=== PATIENT | female | born 1980 | race Caucasian/White ===

== ENCOUNTER 2018-04-30 00:35 | Emergency (ER) | payer OTHER ==
[~2018-04-30] VITALS: Ht 175.3 cm; Wt 98.4 kg
--- NOTE | 2018-04-30 01:22 | ED.ADGEN ---
Past History Past Medical History: No Pertinent History Past Surgical History: No Surgical History Smoking: Non-smoker Adult General Chief Complaint Chief Complaint Right shoulder and elbow injury post fall HPI HPI Patient was cleaning kaylee from around her pool deck at about 8:00PM tonight when she fell off the pool deck about 4 feet onto her right shoulder. She landed on her right shoulder and elbow and has had difficulty moving her right arm since then. She denied any head injury or loss of consciousness. She denies any neck pain. She hit her hip, but she has been able to ambulate without any pain. Review of Systems Review of Systems Constitutional: Denies fever or chills Eyes: Denies change in visual acuity, redness, or eye pain HENT: Denies nasal congestion or sore throat Respiratory: Denies cough or shortness of breath Cardiovascular: No additional information not addressed in HPI GI: Denies abdominal pain, nausea, vomiting, bloody stools or diarrhea : Denies dysuria or hematuria Musculoskeletal: Denies back pain or neck pain, with right shoulder and elbow pain Integument: Denies rash or skin lesions Neurologic: Denies headache, focal weakness or sensory changes Endocrine: Denies polyuria or polydipsia All other systems were reviewed and found to be within normal limits, except as documented in this note. Current Medications Current Medications Current Medications Medications (Trade) Dose Ordered Sig/Sam Start Time Stop Time Status Last Admin Dose Admin Acetaminophen/ Hydrocodone Bitart (Lortab 5/325) 1 tab 1X ONCE 04/30/18 01:30 04/30/18 01:54 DC 04/30/18 01:38 1 TAB Allergies Allergies Allergies Coded Allergies Type Severity Reaction Last Updated Verified No Known Drug Allergies 04/30/18 No Physical Exam Physical Exam Constitutional: Well developed, well nourished, no acute distress, non-toxic appearance. HENT: Normocephalic, atraumatic, bilateral external ears normal, oropharynx moist, no oral exudates, nose normal. Eyes: PERRLA, EOMI, conjunctiva normal, no discharge. Neck: Normal range of motion, no tenderness or point bony tenderness, supple, no stridor. Cardiovascular:Heart rate regular rhythm, no murmur, pulses equal and symmetric bilaterally. Lungs & Thorax: Bilateral breath sounds clear to auscultation Abdomen: Bowel sounds normal, soft, no tenderness, no masses, no pulsatile masses. Skin: Warm, dry, no erythema, no rash. Back: No tenderness, no CVA tenderness. Extremities: with right shoulder anterior tenderness and right elbow tenderness , no swelling or erythema, passive ROM intact, no edema, no cyanosis, no clubbing. Patient is unable to abduct right shoulder secondary to pain. Neurologic: Alert and oriented X 3, normal motor function, normal sensory function, no focal deficits noted. CN II-XII intact, strength 5/5 UE/LE symmetric bilaterally, sensation intact to light touch and position sense UE/LE symmetric bilaterally. gait normal Psychologic: Affect normal, judgement normal, mood normal. Current Patient Data Vital Signs Vital Signs Date Time Temp Pulse Resp B/P (MAP) Pulse Ox O2 Delivery O2 Flow Rate FiO2 04/30/18 01:38 16 100 04/30/18 01:24 98.8 95 Room Air EKG EKG [] Radiology/Procedures Radiology/Procedures [address] [address] IMAGING REPORT Signed PATIENT: LARRY SOW ACCOUNT: [id number] : 1980 LOCATION: ER AGE: 37 SEX: F EXAM STATUS: DEP ER ORD. PHYSICIAN: WESLEY LAZO MD REASON: Injury from fall 04/29/18 on right lower arm, pain PROCEDURE: FOREARM RIGHT FOREARM RIGHT, HUMERUS RIGHT, SHOULDER 2+V RIGHT Clinical Indication: Injury from fall 04/29/18 on right lower arm, pain Comparison: None. Findings: No obvious deformity of the wrist. No soft tissue swelling of the forearm. No acute fracture of the radius or ulna. Images do not constitute a diagnostic evaluation of the elbow. No obvious deformity of the elbow. No acute fracture of the humerus. Glenohumeral and acromioclavicular articulations are maintained. There is no acute fracture or dislocation. Right upper lung is clear. No acute right rib abnormality. IMPRESSION: No acute fracture. Electronically signed by: Ministerio Tuttle MD (04/30/2018 2:58 AM) [facility] DICTATED AND SIGNED BY: MINISTERIO TUTTLE MD DATE: 04/30/18 0256 CC: WESLEY LAZO MD; PCP,NO ~ [address] [address] IMAGING REPORT Signed PATIENT: LARRY SOW ACCOUNT: [id number] : 1980 LOCATION: ER AGE: 37 SEX: F EXAM STATUS: DEP ER ORD. PHYSICIAN: WESLEY LAZO MD REASON: Injury from fall 04/29/18 on right upper arm, pain PROCEDURE: HUMERUS RIGHT FOREARM RIGHT, HUMERUS RIGHT, SHOULDER 2+V RIGHT Clinical Indication: Injury from fall 04/29/18 on right lower arm, pain Comparison: None. Findings: No obvious deformity of the wrist. No soft tissue swelling of the forearm. No acute fracture of the radius or ulna. Images do not constitute a diagnostic evaluation of the elbow. No obvious deformity of the elbow. No acute fracture of the humerus. Glenohumeral and acromioclavicular articulations are maintained. There is no acute fracture or dislocation. Right upper lung is clear. No acute right rib abnormality. IMPRESSION: No acute fracture. Electronically signed by: Ministerio Tuttle MD (04/30/2018 2:58 AM) [facility] DICTATED AND SIGNED BY: MINISTERIO TUTTLE MD DATE: 04/30/18 025 CC: WESLEY LAZO MD; PCP,NO ~ [address] [address] IMAGING REPORT Signed PATIENT: LARRY SOW ACCOUNT: [id number] : 1980 LOCATION: ER AGE: 37 SEX: F EXAM STATUS: DEP ER ORD. PHYSICIAN: WESLEY LAZO MD REASON: Injury from fall 04/29/18 on right shoulder region, pain PROCEDURE: SHOULDER 2+V RIGHT FOREARM RIGHT, HUMERUS RIGHT, SHOULDER 2+V RIGHT Clinical Indication: Injury from fall 04/29/18 on right lower arm, pain Comparison: None. Findings: No obvious deformity of the wrist. No soft tissue swelling of the forearm. No acute fracture of the radius or ulna. Images do not constitute a diagnostic evaluation of the elbow. No obvious deformity of the elbow. No acute fracture of the humerus. Glenohumeral and acromioclavicular articulations are maintained. There is no acute fracture or dislocation. Right upper lung is clear. No acute right rib abnormality. IMPRESSION: No acute fracture. Electronically signed by: Ministerio Tuttle MD (04/30/2018 2:58 AM) [facility] DICTATED AND SIGNED BY: MINISTERIO TUTTLE MD DATE: 04/30/18 0256 CC: WESLEY LAZO MD; PCP,NO ~ Course & Med Decision Making Course & Med Decision Making Emergency Department Course Patient presents with right shoulder and elbow pain/injury post fall DDx- fracture, dislocation, contusion, sprain, strain The patient was stable in the ED with normal neurologic exam. right shoulder, elbow and forearm x-rays were unremarkable. No fracture or dislocation. Patient was placed in sling and advised to follow-up with orthopedic referral. Final Impression Final Impression Clinical Impression Right shoulder sprain Right Elbow Sprain Draglucia Disclaimer Draglucia Disclaimer This electronic medical record was generated, in whole or in part, using a voice recognition dictation system. Departure Departure: Impression: Primary Impression: Sprain of right shoulder Additional Impression: Sprain of right elbow Disposition: 01 HOME, SELF-CARE Condition: STABLE Patient Instructions: Arm Sling Use, [id number], Elbow Injury, Shoulder Sprain Additional Instructions: Follow-up with Dr. Gokul Smith orthopedics for further evaluation, call tomorrow for an appointment Address: [address] [place] [address], [place] [address] If you develop worse pain, weakness, numbness, swelling, skin discoloration return to the Emergency Department immediately Scripts Hydrocodone Bit/Acetaminophen (NORCO 5-325 TABLET) 1 Each Tablet 1 TAB PO PRN Q6HRS PRN for PAIN for 2 Days, #8 TAB 0 Refills Prov: WESLEY LAZO MD 04/30/18 Ibuprofen (IBUPROFEN) 800 Mg Tablet 800 MG PO TIDWMEALS for 5 Days, #15 TAB Prov: WESLEY LAZO MD 04/30/18 WESLEY LAZO MD Apr 30, 2018 01:22
[2018-04-30 01:24] VITALS: BP 113/66
[2018-04-30] MEDS ORDERED: HYDROcodone/APAP 5/325MG 1 TAB TABLET PO ONE (01:30)
[2018-04-30] MEDS ORDERED: IBUP800T19 PO (01:48)
[2018-04-30] MEDS ORDERED: HYDR-971 PO (01:48)
--- NOTE | 2018-04-30 03:01 | RAD ---
FOREARM RIGHT, HUMERUS RIGHT, SHOULDER 2+V RIGHT Clinical Indication: Injury from fall 04/29/18 on right lower arm, pain Comparison: None. Findings: No obvious deformity of the wrist. No soft tissue swelling of the forearm. No acute fracture of the radius or ulna. Images do not constitute a diagnostic evaluation of the elbow. No obvious deformity of the elbow. No acute fracture of the humerus. Glenohumeral and acromioclavicular articulations are maintained. There is no acute fracture or dislocation. Right upper lung is clear. No acute right rib abnormality. IMPRESSION: No acute fracture. Electronically signed by: Ministerio Tuttle MD (04/30/2018 2:58 AM) [facility]
--- NOTE | 2018-04-30 03:01 | RAD ---
FOREARM RIGHT, HUMERUS RIGHT, SHOULDER 2+V RIGHT Clinical Indication: Injury from fall 04/29/18 on right lower arm, pain Comparison: None. Findings: No obvious deformity of the wrist. No soft tissue swelling of the forearm. No acute fracture of the radius or ulna. Images do not constitute a diagnostic evaluation of the elbow. No obvious deformity of the elbow. No acute fracture of the humerus. Glenohumeral and acromioclavicular articulations are maintained. There is no acute fracture or dislocation. Right upper lung is clear. No acute right rib abnormality. IMPRESSION: No acute fracture. Electronically signed by: Ministerio Tuttle MD (04/30/2018 2:58 AM) [facility]
== END 2018-04-30 02:01 | disposition home or self-care (01) ==
LOC: ER 00:35
DX: S43.401A Unspecified sprain of right shoulder joint, initial encounter (principal); S53.401A Unspecified sprain of right elbow, initial encounter; W17.89XA Other fall from one level to another, initial encounter; Y93.89 Activity, other specified; Y92.89 Other specified places as the place of occurrence of the external cause; Y99.8 Other external cause status
CPT/HCPCS: 73030; 73060; 73090; 99284

== ENCOUNTER 2019-07-28 21:12 | Emergency (ER) | payer BC, OTHER ==
[~2019-07-28] VITALS: Ht 175.3 cm; Wt 81.6 kg
[~2019-07-28 21:12] MED LIST: HYDR-3165 PO; IBUP800T19 PO
[2019-07-28 21:15] VITALS: BP 103/88
[2019-07-28] MEDS ORDERED: HYDR-3165 PO (21:54)
--- NOTE | 2019-07-28 21:54 | PHYS DOC ---
Past History Past Medical History: No Pertinent History Additional Past Medical Histor: lupus, renaulds Past Surgical History: No Surgical History Additional Past Surgical Histo: shoulder Smoking: Non-smoker Alcohol Use: None Drug Use: None Adult General Chief Complaint Chief Complaint: HAND PROBLEM HPI HPI 39-year-old female presents with right thumb injury. 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 She hyperextended her thumb. She waited at home to see if the pain would improve, but it is still quite painful. 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 She denies any other injuries. Her pain is most significant at the base of the thumb. Review of Systems Review of Systems Constitutional: Denies fever or chills [] Eyes: Denies change in visual acuity, redness, or eye pain [] HENT: Denies nasal congestion or sore throat [] Respiratory: Denies cough or shortness of breath [] Cardiovascular: No additional information not addressed in HPI [] GI: Denies abdominal pain, nausea, vomiting, bloody stools or diarrhea [] : Denies dysuria or hematuria [] Musculoskeletal: Right thumb pain[] Integument: Denies rash or skin lesions [] Neurologic: Denies headache, focal weakness or sensory changes [] Endocrine: Denies polyuria or polydipsia [] All other systems were reviewed and found to be within normal limits, except as documented in this note. Allergies Allergies Allergies Coded Allergies Type Severity Reaction Last Updated Verified No Known Drug Allergies 04/30/18 No Physical Exam Physical Exam Constitutional: Well developed, well nourished, no acute distress, non-toxic appearance. [] HENT: Normocephalic, atraumatic, bilateral external ears normal, oropharynx moist, no oral exudates, nose normal. [] Eyes: PERRLA, EOMI, conjunctiva normal, no discharge. [] Neck: Normal range of motion, no tenderness, supple, no stridor. [] Cardiovascular:Heart rate regular rhythm, no murmur [] Lungs & Thorax: Bilateral breath sounds clear to auscultation [] Abdomen: Bowel sounds normal, soft, no tenderness, no masses, no pulsatile masses. [] Skin: Warm, dry, no erythema, no rash. [] Back: No tenderness, no CVA tenderness. [] Extremities: Tenderness at the base of the right thumb. Range of motion within normal limits. Opposition strength 3/5.[] Neurologic: Alert and oriented X 3, normal motor function, normal sensory function, no focal deficits noted. [] Psychologic: Affect normal, judgement normal, mood normal. [] Current Patient Data Vital Signs Vital Signs Date Time Temp Pulse Resp B/P (MAP) Pulse Ox O2 Delivery O2 Flow Rate FiO2 07/28/19 21:15 98.2 88 18 97 Room Air EKG EKG [] Radiology/Procedures Radiology/Procedures [] Course & Med Decision Making Course & Med Decision Making Pertinent Labs and Imaging studies reviewed. (See chart for details) The patient appears to have a skier's thumb injury. I will place her in a thumb spica splint. I have also advised the patient that she follow with orthopedics. She has a hand surgeon that she will contact for follow-up. She is stable for discharge at this time. I will discharge with Moosic 5/325 for pain. [] Dragon Disclaimer Dragon Disclaimer This electronic medical record was generated, in whole or in part, using a voice recognition dictation system. Departure Departure: Impression: Primary Impression: Skier's thumb Disposition: 01 HOME, SELF-CARE Condition: STABLE Referrals: SARIAH VERONICA MD (PCP) Patient Instructions: Gamekeeper's, Skier's Thumb Scripts Hydrocodone Bit/Acetaminophen (NORCO 5-325 TABLET) 1 Each Tablet 1 TAB PO PRN Q6HRS PRN for PAIN, #10 TAB 0 Refills Prov: LUCÍA CARMICHAEL DO 07/28/19 Problem Qualifiers Primary Impression: Skier's thumb Encounter type: initial encounter Laterality: right Qualified Codes: S63.641A - Sprain of metacarpophalangeal joint of right thumb, initial encounter LUCÍA CARMICHAEL DO Jul 28, 2019 21:54
[2019-07-28] MEDS ORDERED: HYDROcodone/APAP 5/325MG 1 TAB TABLET PO ONE (22:00)
--- NOTE | 2019-07-28 23:40 | RAD ---
INDICATION: Status post fall COMPARISON: None. IMPRESSION: Right hand: 3 views obtained. No definite acute fracture or dislocation. Minimal irregularity at the distal aspect of the fifth middle phalanx ulnar aspect. Most likely secondary to prominent trabecula unless there is point tenderness. Right wrist: 3 views obtained. No definite acute fracture or dislocation. Electronically signed by: Rell Ford MD (07/28/2019 11:37 PM) [facility]
--- NOTE | 2019-07-28 23:40 | RAD ---
INDICATION: Status post fall COMPARISON: None. IMPRESSION: Right hand: 3 views obtained. No definite acute fracture or dislocation. Minimal irregularity at the distal aspect of the fifth middle phalanx ulnar aspect. Most likely secondary to prominent trabecula unless there is point tenderness. Right wrist: 3 views obtained. No definite acute fracture or dislocation. Electronically signed by: Rell Ford MD (07/28/2019 11:37 PM) [facility]
== END 2019-07-28 22:39 | disposition home or self-care (01) ==
LOC: ER 21:12
DX: S63.641A Sprain of metacarpophalangeal joint of right thumb, initial encounter (principal); W18.09XA Striking against other object with subsequent fall, initial encounter; Y93.89 Activity, other specified; Y92.89 Other specified places as the place of occurrence of the external cause; Y99.8 Other external cause status
CPT/HCPCS: 29125; 73110; 73130; 99284

== ENCOUNTER 2019-10-05 18:12 | Emergency (ER) | payer BC, OTHER ==
[~2019-10-05] VITALS: Ht 175.3 cm; Wt 90.0 kg
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
[2019-10-05] MEDS ORDERED: KETOROLAC 60 MG/2 ML VIAL. IM ONE (19:30)
[2019-10-05] MEDS ORDERED: ORPHENADRINE CITRATE 60 MG/2 ML VIAL. IM ONE (19:30)
[2019-10-05] MEDS ORDERED: methylPREDNISolone ACETATE 40 MG/ML VIAL. IM ONE (19:30)
[2019-10-05] MEDS ORDERED: MORPHINE SULFATE 10 MG/ML SYRINGE. SQ ONE (19:45)
[2019-10-05 20:12] LABS: CLARITY,URINE CLEAR; COLOR,URINE YELLOW; GLUCOSE,URINE NEG (NEG)
[2019-10-05 20:13] LABS: BACTERIA,URINE 0 /HPF (0-FEW); BILIRUBIN,URINE NEG (NEG); NITRITE,URINE NEG (NEG); RBC,URINE 0 /HPF (0-2); SQUAMOUS EPITHELIAL CELL,UR OCC /LPF; UROBILINOGEN,URINE 0.2 mg/dL (0.2 mg/dL); WBC,URINE 0 /HPF (0-4)
[2019-10-05 20:14] LABS: BARBITURATES NEG (NEG); BENZODIAZEPINES NEG (NEG); CANNABINOIDS NEG (NEG); COCAINE NEG (NEG); METHADONE NEG (NEG); OPIATES NEG (NEG); PHENCYCLIDINE NEG (NEG)
[2019-10-05 20:17] LABS: AMPHETAMINE/METHAMPHETAMINE POS (NEG)
--- NOTE | 2019-10-05 20:31 | RAD ---
EXAM: CT lumbar spine without IV contrast CLINICAL HISTORY:Left sciatica, left hip and lower back pain. COMPARISON: None available. TECHNIQUE: Helical CT was performed through the lumbar spine. Axial, coronal and sagittal reformatted images were generated. PQRS compliance statement - One or more of the following individualized dose reduction techniques were utilized for this study: 1. Automated exposure control 2. Adjustment of the mA and/or kV according to patient size 3. Use of iterative reconstruction technique FINDINGS: Vertebral body heights are preserved. No acute fracture. Mild L3-4 disc height loss. Otherwise disc heights are preserved. No spondylolisthesis. Cholecystectomy clips are seen. A few scattered sclerotic foci within the pelvis/sacrum is likely bone islands. Moderate colonic stool content. Mild generalized disc bulge at L3-4 and L4-5 as well as L5-S1 results in mild central canal stenosis at these levels without significant neural foraminal narrowing. IMPRESSION: No evidence for acute fracture or subluxation. EXAM: CT pelvis without contrast DATE: 10/05/2019 7:39 PM COMPARISON: No prior INDICATION: Left hip pain, sciatica, lower back pain TECHNIQUE: CT of the pelvis was performed without IV contrast. Axial coronal and sagittal reformatted images were generated. PQRS compliance statement - One or more of the following individualized dose reduction techniques were utilized for this study: 1. Automated exposure control 2. Adjustment of the mA and/or kV according to patient size 3. Use of iterative reconstruction technique FINDINGS: There is no evidence for acute fracture or dislocation. Hip joint spaces are grossly preserved. Subtle sepsis pubis degenerative changes are seen. On the marginal evaluation of the pelvis, no pelvic mass, lymphadenopathy or ascites. Scattered pelvic phleboliths are noted. IMPRESSION: No definite acute pelvic fracture is seen. Electronically signed by: Ike Stephen MD (10/05/2019 8:29 PM) [id number]
[2019-10-05 20:43] LABS: BASO # 0.1 x10^3/uL (0.0-0.2); BASO % 1 % (0-3); EOS # 0.1 x10^3/uL (0.0-0.7); EOS % 1 % (0-3); HEMATOCRIT 35.4 % (36.0-47.0); HEMOGLOBIN 11.2 g/dL (12.0-15.5); LYMPH # 2.2 x10^3/uL (1.0-4.8); LYMPH % 20 % (24-48); MEAN CORPUSCULAR HEMOGLOBIN 27 pg (25-35); MEAN CORPUSCULAR HGB CONC 32 g/dL (31-37); MEAN CORPUSCULAR VOLUME 85 fL (79-100); MONO # 0.9 x10^3/uL (0.0-1.1); MONO % 8 % (0-9); NEUT # 7.8 x10^3uL (1.8-7.7); NEUT % 70 % (31-73); PLATELET COUNT 243 x10^3/uL (140-400); RED BLOOD COUNT 4.16 x10^6/uL (3.50-5.40); RED CELL DISTRIBUTION WIDTH 17.3 % (11.5-14.5); WHITE BLOOD COUNT 11.1 x10^3/uL (4.0-11.0)
--- NOTE | 2019-10-05 20:50 | RAD ---
EXAM: AP pelvis, AP and lateral views both hips DATE: 10/05/2019 7:25 PM INDICATION: Pelvis and left hip pain COMPARISON: No Prior FINDINGS: No evidence of acute fracture or dislocation. Hip joint spaces are grossly preserved. SI joint spaces are preserved. No pubic symphysis or SI joint diastases. Scattered pelvic phleboliths. Small right os acromiale. IMPRESSION: No evidence of acute fracture or dislocation. Electronically signed by: Ike Stephen MD (10/05/2019 8:47 PM) [id number]
[2019-10-05 20:53] LABS: CALCIUM 8.6 mg/dL (8.5-10.1); CREATININE 0.8 mg/dL (0.6-1.0); GFR 79.9; POTASSIUM 3.7 mmol/L (3.5-5.1)
[2019-10-05 20:55] VITALS: BP 112/66
[2019-10-05 20:59] LABS: ALBUMIN 3.7 g/dL (3.4-5.0); C REACTIVE PROTEIN 8.5 mg/L (0-3.3); TOTAL BILIRUBIN 0.2 mg/dL (0.2-1.0); TOTAL PROTEIN 7.5 g/dL (6.4-8.2)
[2019-10-05] MEDS ORDERED: HYDR-1179 PO (21:17)
[2019-10-05 21:59] LABS: SEDIMENTATION RATE 25 (0-25)
== END 2019-10-05 21:27 | disposition home or self-care (01) ==
LOC: ER 18:12
DX: S79.912A Unspecified injury of left hip, initial encounter (principal); D72.829 Elevated white blood cell count, unspecified; D64.9 Anemia, unspecified; F15.10 Other stimulant abuse, uncomplicated; X50.1XXA Overexertion from prolonged static or awkward postures, initial encounter; Y93.89 Activity, other specified; Y92.89 Other specified places as the place of occurrence of the external cause; Y99.8 Other external cause status
CPT/HCPCS: 36415; 72131; 72192; 73521; 80053; 80307; 81001; 81025; 85025; 85651; 86140; 96372; 99285; J1030; J1885; J2360

== ENCOUNTER 2019-12-21 19:07 | Emergency (ER) | payer OTHER ==
[~2019-12-21] VITALS: Ht 175.3 cm; Wt 99.0 kg
[~2019-12-21 19:07] MED LIST changes: +HYDR-1179 PO
--- NOTE | 2019-12-21 19:09 | PHYS DOC ---
Past History Past Medical History: Arthritis, Other Additional Past Medical Histor: lupus, raynouds Past Surgical History: Cholecystectomy, , Other Additional Past Surgical Histo: shoulder, Legs Smoking: Non-smoker Alcohol Use: None Drug Use: None General Adult EDM: Chief Complaint: HAND PROBLEM HPI: HPI: ".. 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 And then my 200 pound son stepped on it..... And after he stepped on it it got really swollen and painful..... I follow with Dr. Sommer yesterday... And they have a new x-ray machine and it was not working too well but they said I had a fracture my third and fifth meta phalange.. I went down there by [email or web address] and they put a splint on.... But I was painting with my right hand today and I was having trouble so I took off the splint.... But then I felt a big pop in my right hand and severe pain... So that is why I want it rechecked? Patient is a 39 year old female who presents with above hx and complaints of rig ht hand injury. Patient has had a series of right hand injuries first by punching a wall on Friday, his son stepped on it, and then while painting today. Patient has previous diagnosis of fracture of her third and fifth meta phalange joints. Patient localizes pain on this visit and fifth and fourth proximal phalange joints. The patient is right-hand dominant. Distal capillary refill and sensation is equal to her left hand. Patient localizes the pain in her fourth and fifth phalange proximal joints that is exacerbated by flexion and extension. There is no scissoring. There is mild pain on loading of fourth and fifth fingers.. No history immunosuppression. No history of recent travel outside the [place] area. Patient normally follows with Dr. Sommer Review of Systems: Review of Systems: Constitutional: Denies fever or chills Eyes: Denies change in visual acuity HENT: Denies nasal congestion or sore throat Respiratory: Denies cough or shortness of breath Cardiovascular: Denies chest pain or edema GI: Denies abdominal pain, nausea, vomiting, bloody stools or diarrhea : Denies dysuria Musculoskeletal: Complains of right hand injury Integument: Denies rash Neurologic: Denies headache, focal weakness or sensory changes Endocrine: Denies polyuria or polydipsia Lymphatic: Denies swollen glands Psychiatric: Denies depression or anxiety Heart Score: Risk Factors: Risk Factors: DM, Current or recent (<one month) smoker, HTN, HLP, family history of CAD, obesity. Risk Scores: Score 0 - 3: 2.5% MACE over next 6 weeks - Discharge Home Score 4 - 6: 20.3% MACE over next 6 weeks - Admit for Clinical Observation Score 7 - 10: 72.7% MACE over next 6 weeks - Early Invasive Strategies Family History: Family History: Noncontributory to presentation Current Medications: Current Meds: See nursing for home meds Allergies: Allergies: Allergies Coded Allergies Type Severity Reaction Last Updated Verified Sulfa (Sulfonamide Antibiotics) Allergy Unknown 10/05/19 Yes amoxicillin Allergy Unknown 10/05/19 Yes clindamycin Allergy Unknown 10/05/19 Yes morphine Allergy Unknown 10/05/19 Yes povidone-iodine Allergy Unknown 10/05/19 Yes soap Allergy Unknown 10/05/19 Yes Physical Exam: PE: Constitutional: Moderate acute distress, non-toxic appearance. [] HENT: Normocephalic, atraumatic, bilateral external ears normal, oropharynx moist, no oral exudates, nose normal. [] Eyes: PERRLA, EOMI, conjunctiva normal, no discharge. [] Neck: Normal range of motion, no tenderness, supple, no stridor. [] Cardiovascular:Heart rate regular rhythm, no murmur [] Lungs & Thorax: Bilateral breath sounds c equal at apex on auscultation [] Abdomen: Bowel sounds normal, soft, no tenderness, no masses, no pulsatile masses. [] Old surgery scars Skin: Warm, dry, no erythema, no rash. [] Back: No tenderness, no CVA tenderness. [] Extremities: No tenderness, no cyanosis, no clubbing, ROM intact, no edema. Except findings in right hand as per HPI] Neurologic: Alert and oriented X 3, normal motor function, normal sensory function, no focal deficits noted. [] Psychologic: Affect anxious l, judgement normal, mood normal. [] EKG: EKG: [] Radiology/Procedures: Radiology/Procedures: My interpretation of right hand film shows no obvious dislocation or displaced fracture. There is minimal irregularity of the fifth finger but this finding was also present on July 28, 2019. This is not an area of tenderness on exam. [] Course & Med Decision Making: Course & Med Decision Making Pertinent Labs and Imaging studies reviewed. (See chart for details) Patient to wear splint. Distal neurovascular intact after application of splint. Patient to have hand re-x-rayed in 2 weeks if lining machine tender to evaluate for fracture that may have been missed or callus formation. Patient take Tyle nol and ibuprofen for pain. Patient to elevate hand. Patient use ice as needed. Patient follow-up with Dr. Pelaez. Patient return if any concerns. Impression; 1. Multiple injuries to the right hand-(no obvious dislocation or fracture on current x-ray )-crush and contusion injuries [] Dragon Disclaimer: Dragon Disclaimer: This electronic medical record was generated, in whole or in part, using a voice recognition dictation system. Departure Departure: Disposition: 01 HOME/RESIDENCE PRIOR TO ADM Condition: STABLE Referrals: SARIAH VERONICA MD (PCP) Draglucia Disclaimer This chart was dictated in whole or in part using Voice Recognition software in a busy, high-work load, and often noisy Emergency Department environment. It may contain unintended and wholly unrecognized errors or omissions. Dragon Disclaimer This chart was dictated in whole or in part using Voice Recognition software in a busy, high-work load, and often noisy Emergency Department environment. It may contain unintended and wholly unrecognized errors or omissions. CARLOS MANUEL BARRIOS MD Dec 21, 2019 19:09
[2019-12-21 19:16] VITALS: BP 148/55
[2019-12-21] MEDS ORDERED: HYDROcodon/IBUPROFEN 7.5/200MG 1 TAB TABLET ONE (19:35)
[2019-12-21] MEDS ORDERED: HYDROcodon/IBUPROFEN 7.5/200MG 1 TAB TABLET PO ONE (19:40)
--- NOTE | 2019-12-21 20:02 | RAD ---
HAND RIGHT 3V 12/21/2019 7:23 PM INDICATION: History of fracture. Punched wall. COMPARISON: Right hand radiograph 07/28/2019 TECHNIQUE: 3 views the right hand are provided. FINDINGS/ IMPRESSION: 1. No acute fracture or dislocation is identified. 2. Similar mild cortical irregularity involving the distal articular surface of the middle phalanx of the fifth digit. 3. Bone mineralization is within normal limits. Electronically signed by: Arlet Green MD (12/21/2019 7:59 PM) JHON
== END 2019-12-21 20:27 | disposition home or self-care (01) ==
LOC: ER 19:07
DX: S60.221A Contusion of right hand, initial encounter (principal); M19.90 Unspecified osteoarthritis, unspecified site; Z88.2 Allergy status to sulfonamides; Z88.1 Allergy status to other antibiotic agents; Z88.8 Allergy status to other drugs, medicaments and biological substances; W22.01XA Walked into wall, initial encounter; Y93.89 Activity, other specified; Y92.89 Other specified places as the place of occurrence of the external cause; Y99.8 Other external cause status
CPT/HCPCS: 29125; 73130; 99283

== ENCOUNTER 2020-07-19 20:30 | Emergency (ER) | payer BC, OTHER ==
[~2020-07-19] VITALS: Ht 175.3 cm; Wt 99.0 kg
[2020-07-19 20:43] VITALS: BP 127/64
--- NOTE | 2020-07-19 21:02 | PHYS DOC ---
Past History Past Medical History: Arthritis, Kidney Stones, Other Additional Past Medical Histor: lupus, raynouds (COLT FOX APRN) Past Surgical History: Cholecystectomy, , Other Additional Past Surgical Histo: shoulder, Legs (COLT FOX APRN) Smoking: Non-smoker Alcohol Use: None Drug Use: None (COLT FOX APRN) Adult General Chief Complaint Chief Complaint: HIP PAIN HPI HPI Patient is a male with history of kidney stones, arthritis, MS, who presents to the ED today complaining of 6 out of 10 right flank pain, right hip pain, symptoms began 3 weeks ago. Patient states she thinks she has dysuria as well. She states she believes she has a kidney stone. She states she thinks she passed one. Denies any nausea, vomiting, fever. Denies any hematuria. (COLT FOX APRN) Review of Systems Review of Systems Constitutional: Denies fever or chills [] Eyes: Denies change in visual acuity, redness, or eye pain [] HENT: Denies nasal congestion or sore throat [] Respiratory: Denies cough or shortness of breath [] Cardiovascular: No additional information not addressed in HPI [] GI: Denies abdominal pain, nausea, vomiting, bloody stools or diarrhea [] : Reports right flank pain and dysuria. Denies hematuria [] Musculoskeletal: Reports right hip pain Integument: Denies rash or skin lesions [] Neurologic: Denies headache, focal weakness or sensory changes [] All other systems were reviewed and found to be within normal limits, except as documented in this note. (COLT FOX APRN) Allergies Allergies Allergies Coded Allergies Type Severity Reaction Last Updated Verified Sulfa (Sulfonamide Antibiotics) Allergy Unknown 10/05/19 Yes amoxicillin Allergy Unknown 10/05/19 Yes clindamycin Allergy Unknown 10/05/19 Yes morphine Allergy Unknown 10/05/19 Yes povidone-iodine Allergy Unknown 10/05/19 Yes soap Allergy Unknown 10/05/19 Yes (COLT FOX APRN) Physical Exam Physical Exam Constitutional: Well developed, well nourished, no acute distress, non-toxic appearance. [] HENT: Normocephalic, atraumatic, bilateral external ears normal, oropharynx moist, no oral exudates, nose normal. [] Eyes: PERRLA, EOMI, conjunctiva normal, no discharge. [] Neck: Normal range of motion, no tenderness, supple, no stridor. [] Cardiovascular:Heart rate regular rhythm, no murmur [] Lungs & Thorax: Bilateral breath sounds clear to auscultation [] Abdomen: Bowel sounds normal, soft, no tenderness, no masses, no pulsatile masses. [] Skin: Warm, dry, no erythema, no rash. [] Back: No tenderness, no CVA tenderness. [] Extremities: No tenderness, no cyanosis, no clubbing, ROM intact, no edema. [] Neurologic: Alert and oriented X 3, normal motor function, normal sensory function, no focal deficits noted. [] Psychologic: Affect normal, judgement normal, mood normal. [] (COLT FOX APRN) Current Patient Data Vital Signs Vital Signs Date Time Temp Pulse Resp B/P (MAP) Pulse Ox O2 Delivery O2 Flow Rate FiO2 07/19/20 20:43 97.8 102 16 127/64 (85) 98 Room Air (COLT FOX APRN) EKG EKG [] (COLT FOX APRN) Radiology/Procedures Radiology/Procedures []PROCEDURE: CT ABDOMEN PELVIS WO CONTRAST Exam: CT of abdomen and pelvis without contrast INDICATION: Flank pain, history of kidney stones TECHNIQUE: Sequential axial images through the abdomen and pelvis obtained without IV contrast. Sagittal and coronal reformatted images were reconstructed from the axial data and reviewed. Comparisons: None FINDINGS: Heart size is normal. No pericardial effusion. Visualized lung bases are clear. No pleural effusion. Evaluation of solid organs is limited secondary to noncontrast technique. There is trace pneumobilia at the left hepatic lobe. Otherwise, liver, spleen, pancreas and adrenals are unremarkable. Gallbladder is absent. No perinephric inflammation or hydronephrosis. No renal or ureteral calculi are identified. Bladder is decompressed not well evaluated. Uterus is not enlarged. No abnormal adnexal mass. Large and small bowel are unremarkable. Appendix is not identified. No free intra-abdominal air or fluid. No obstruction. Abdominal aorta has a normal course and caliber. No enlarged abdominal lymph nodes are identified. No suspicious osseous lesions or acute fractures. IMPRESSION: No renal or ureteral calculi. No evidence for obstructive uropathy. Exposure: One or more of the following in the visualized dose reduction techniques were utilized for this examination: 1. Automated exposure control 2. Adjustment of the MA and/or KV according to patient size 3. Use of iterative of reconstructive technique Electronically signed by: Mal Sampson MD (07/19/2020 9:11 PM) [facility] DICTATED AND SIGNED BY: MAL SAMPSON MD DATE: 07/19/202110 CC: SARIAH VERONICA MD; [facility]; COLT FOX APRN ~ (COLT OFX APRN) Heart Score Risk Factors: Risk Factors: DM, Current or recent (<one month) smoker, HTN, HLP, family history of CAD, obesity. Risk Scores: Risk Factors: DM, Current or recent (<one month) smoker, HTN, HLP, family history of CAD, obesity. (COLT FOX APRN) Course & Med Decision Making Course & Med Decision Making Pertinent Labs and Imaging studies reviewed. (See chart for details) This is a 40-year-old female patient presenting to the ED today with right flank pain, right hip pain and dysuria for 3 weeks. She believes she has a kidney stone and could have passed it. CT of the abdomen and pelvis was negative for any acute findings. UA is negative. Discharge home. Follow-up with PCP as well as her specialists. (COLT FOX APRN) Dragon Disclaimer Dragon Disclaimer This electronic medical record was generated, in whole or in part, using a voice recognition dictation system. (COLT FOX APRN) Attending Co-Sign The patient was seen and interviewed as well as examined at the bedside. The chart was reviewed. The case was discussed. Agree with the plan of care. (LUCÍA CARMICHAEL DO) Departure Departure: Impression: Primary Impression: Right flank pain Additional Impression: Right hip pain Disposition: 01 DC HOME SELF CARE/HOMELESS Condition: STABLE Referrals: SARIAH VERONICA MD (PCP) Follow-up in the course of this week or next week Patient Instructions: Flank Pain, [id number], Hip Pain Additional Instructions: You were evaluated in the emergency room, your CAT scan was negative for any acute findings. Your urine was negative for any infection. Please follow-up with your specialist as well as your primary care doctor as soon as you can Scripts Cyclobenzaprine Hcl (CYCLOBENZAPRINE HCL) 10 Mg Tablet 1 TAB PO TID, #30 TAB Prov: COLT FOX APRN 07/19/20 Diclofenac Potassium (DICLOFENAC POTASSIUM) 50 Mg Tablet 1 TAB PO BID, #12 TAB Prov: COLT FOX APRN 07/19/20 Problem Qualifiers COLT FOX APRN Jul 19, 2020 21:02 LUCÍA CARMICHAEL DO Jul 20, 2020 00:09
--- NOTE | 2020-07-19 21:14 | RAD ---
Exam: CT of abdomen and pelvis without contrast INDICATION: Flank pain, history of kidney stones TECHNIQUE: Sequential axial images through the abdomen and pelvis obtained without IV contrast. Sagittal and coronal reformatted images were reconstructed from the axial data and reviewed. Comparisons: None FINDINGS: Heart size is normal. No pericardial effusion. Visualized lung bases are clear. No pleural effusion. Evaluation of solid organs is limited secondary to noncontrast technique. There is trace pneumobilia at the left hepatic lobe. Otherwise, liver, spleen, pancreas and adrenals are unremarkable. Gallbladder is absent. No perinephric inflammation or hydronephrosis. No renal or ureteral calculi are identified. Bladder is decompressed not well evaluated. Uterus is not enlarged. No abnormal adnexal mass. Large and small bowel are unremarkable. Appendix is not identified. No free intra-abdominal air or fluid. No obstruction. Abdominal aorta has a normal course and caliber. No enlarged abdominal lymph nodes are identified. No suspicious osseous lesions or acute fractures. IMPRESSION: No renal or ureteral calculi. No evidence for obstructive uropathy. Exposure: One or more of the following in the visualized dose reduction techniques were utilized for this examination: 1. Automated exposure control 2. Adjustment of the MA and/or KV according to patient size 3. Use of iterative of reconstructive technique Electronically signed by: Mal Block MD (07/19/2020 9:11 PM) [facility]
[2020-07-19 21:24] LABS: BACTERIA,URINE FEW /HPF (0-FEW); BILIRUBIN,URINE NEG (NEG); CLARITY,URINE CLEAR; COLOR,URINE YELLOW; GLUCOSE,URINE NEG (NEG); NITRITE,URINE NEG (NEG); RBC,URINE RARE /HPF (0-2); UROBILINOGEN,URINE 0.2 mg/dL (0.2 mg/dL); WBC,URINE OCC /HPF (0-4)
[2020-07-19 21:25] LABS: SQUAMOUS EPITHELIAL CELL,UR FEW /LPF
[2020-07-19] MEDS ORDERED: DICL50TA2 PO (21:30)
[2020-07-19] MEDS ORDERED: CYCL-331 PO (21:30)
[2020-07-19 22:18] LABS: BARBITURATES NEG (NEG); BENZODIAZEPINES NEG (NEG); CANNABINOIDS NEG (NEG); COCAINE NEG (NEG); METHADONE NEG (NEG); OPIATES NEG (NEG); PHENCYCLIDINE NEG (NEG)
[2020-07-19 22:19] LABS: AMPHETAMINE/METHAMPHETAMINE POS (NEG)
== END 2020-07-19 21:36 | disposition home or self-care (01) ==
LOC: ER 20:30
DX: R10.9 Unspecified abdominal pain (principal); M25.551 Pain in right hip; R30.0 Dysuria; Z87.442 Personal history of urinary calculi; M19.90 Unspecified osteoarthritis, unspecified site; G35 Multiple sclerosis; Z88.2 Allergy status to sulfonamides; Z88.1 Allergy status to other antibiotic agents; Z88.5 Allergy status to narcotic agent; Z88.8 Allergy status to other drugs, medicaments and biological substances
CPT/HCPCS: 36415; 74176; 80307; 81001; 99284

== ENCOUNTER 2020-12-21 19:38 | Emergency (ER) | payer BC, OTHER ==
[~2020-12-21] VITALS: Ht 175.3 cm; Wt 99.0 kg
[2020-12-21 19:38] VITALS: BP 102/64
[~2020-12-21 19:38] MED LIST changes: +CYCL-331 PO; +DICL50TA2 PO
[2020-12-21] MEDS ORDERED: CEPH750C9 PO (21:07)
[2020-12-21] MEDS ORDERED: FLUC100T7 PO (21:58)
[2020-12-21] MEDS ORDERED: CIPR500S2 PO (21:58)
[2020-12-21] MEDS ORDERED: HYDR-1179 PO (22:07)
== END 2020-12-21 22:30 | disposition home or self-care (01) ==
LOC: ER 19:38
DX: S61.432A Puncture wound without foreign body of left hand, initial encounter (principal); S70.01XA Contusion of right hip, initial encounter; M19.90 Unspecified osteoarthritis, unspecified site; Z87.442 Personal history of urinary calculi; Z88.1 Allergy status to other antibiotic agents; Z88.5 Allergy status to narcotic agent; Z88.8 Allergy status to other drugs, medicaments and biological substances; W54.0XXA Bitten by dog, initial encounter; Y93.89 Activity, other specified; Y92.89 Other specified places as the place of occurrence of the external cause; Y99.8 Other external cause status
CPT/HCPCS: 73130; 73502; 96365; 96372; 96375; 99284; J0696; J1200; J3010; Q0162

== ENCOUNTER 2021-02-21 20:04 | Emergency (ER) | payer BC, OTHER ==
[~2021-02-21] VITALS: Ht 175.3 cm; Wt 99.8 kg
[~2021-02-21 20:04] MED LIST changes: +CEPH750C9 PO; +CIPR500S2 PO; +FLUC100T7 PO
[2021-02-21] MEDS ORDERED: HYDROcodone/APAP 5/325MG 1 TAB TABLET PO ONE (20:30)
--- NOTE | 2021-02-21 20:40 | PHYS DOC ---
Past History Past Medical History: Other Additional Past Medical Histor: LUPUS (TRENT CID APRN) Past Surgical History: Appendectomy, Cholecystectomy, , Tubal ligation, Other Additional Past Surgical Histo: BILATERL KNEES, RIGHT SHOULDER, 2 ANKLES (TRENT CID APRN) Smoking: Non-smoker Alcohol Use: Rarely Drug Use: None (TRENT CID APRN) General Adult EDM: Chief Complaint: HAND PROBLEM HPI: HPI: Patient is a 40 year old female who presents with right hand pain after punching a wall yesterday. She reports that pain radiates up to her elbow, she rates it 8 out of 10, she took 800 mg of ibuprofen at 1800 and she has been applying ice, pain is worse with movement. (TRENT CID APRN) Review of Systems: Review of Systems: Musculoskeletal: Reports pain to right hand radiating up to elbow Integument: Reports bruising and swelling to right hand Neurologic: Denies sensory changes (TRENT CID APRN) Allergies: Allergies: Allergies Coded Allergies Type Severity Reaction Last Updated Verified Sulfa (Sulfonamide Antibiotics) Allergy Unknown 10/05/19 Yes amoxicillin Allergy Unknown 10/05/19 Yes clindamycin Allergy Unknown 10/05/19 Yes latex Allergy Unknown 02/21/21 Yes morphine Allergy Unknown 10/05/19 Yes povidone-iodine Allergy Unknown 10/05/19 Yes soap Allergy Unknown 10/05/19 Yes tramadol Allergy Unknown 12/21/20 Yes (TRENT CID APRN) Physical Exam: PE: Constitutional: Well developed, well nourished, no acute distress, non-toxic appearance. [] Skin: Warm, dry, mild swelling noted to right hand and forearm, bruising noted to dorsal aspect of R. hand proximal to MCP joints of 3-5th fingers.[] Extremities: Tenderness with palpation of right hand, wrist, forearm,elbow, neuro intact, range of motion of hand, wrist, elbow intact [] Neurologic: Alert and oriented X 3, normal motor function, normal sensory function, no focal deficits noted. [] Psychologic: Affect normal, judgement normal, mood normal. [] (TRENT CID APRN) Current Patient Data: Vital Signs: Vital Signs Date Time Temp Pulse Resp B/P (MAP) Pulse Ox O2 Delivery O2 Flow Rate FiO2 02/21/21 20:15 98.1 99 20 106/66 (79) 98 (TRENT CID APRN) EKG: EKG: [] (TRENT CID APRN) Radiology/Procedures: Radiology/Procedures: PROCEDURE: HAND RIGHT 3V Three-view right hand and two-view right forearm dated 02/21/2021. No comparison available. Clinical indication: Pain injury. FINDINGS: 3 views the right hand show normal bony alignment. No displaced fracture or periostitis or bone destruction. No acute osseous or articular abnormality. 2 views the right forearm show normal bony alignment. No displaced fracture. No radial or ulnar shaft fracture. IMPRESSION: No acute radiographic abnormality. Electronically signed by: Samuel Khoury MD (02/21/2021 8:44 PM) [facility] [place] DICTATED AND SIGNED BY: SAMUEL KHOURY MD DATE: 02/21/212042 CC: SARIAH VERONICA MD; TRENT CID APRN ~MTH0 0 (TRENT CID APRN) Heart Score: C/O Chest Pain: No Risk Factors: Risk Factors: DM, Current or recent (<one month) smoker, HTN, HLP, family h istory of CAD, obesity. Risk Scores: Score 0 - 3: 2.5% MACE over next 6 weeks - Discharge Home Score 4 - 6: 20.3% MACE over next 6 weeks - Admit for Clinical Observation Score 7 - 10: 72.7% MACE over next 6 weeks - Early Invasive Strategies (TRENT CID APRN) Course & Med Decision Making: Course & Med Decision Making Pertinent Labs and Imaging studies reviewed. (See chart for details) X-ray performed of right hand and forearm negative for any acute fracture as read by the radiologist. Patient was given oral pain medication in the ER. Patient was offered an Bertram wrap but declined. (TRENT CID APRN) Course & Med Decision Making Did not see or evaluate patient. Agree with SILK SCREEN PRINTER's work-up and disposition per note. (ARELIS SORTO MD) Dragon Disclaimer: Dragon Disclaimer: This electronic medical record was generated, in whole or in part, using a voice recognition dictation system. (TRENT CID APRN) Departure Departure: Impression: Primary Impression: Right hand pain Disposition: HOME / SELF CARE / HOMELESS Condition: GOOD Referrals: SARIAH VERONICA MD (PCP) Patient Instructions: RICE - Routine Care for Injuries Additional Instructions: Thank you for coming into the emergency department today and allowing us to take care of you. Please read the attached information very carefully to go back over what we discussed. You can begin a Tylenol and/or ibuprofen and ice regimen at home as we discussed. Although your imaging today did not show any broken bones that does not mean that there is not an injury to the soft tissues of your hand as we discussed. Please follow-up tomorrow with your primary care physician to discuss your ED visit and set up a follow-up visit to discuss need for further evaluation and treatment. As discussed, please come back to the emergency department immediately with new or concerning symptoms. EMERGENCY DEPARTMENT GENERAL DISCHARGE INSTRUCTIONS Thank you for coming to [facility] (ED) today and trusting us with you care. We trust that you had a positivie experience in our Emergency Department. If you wish to speak to the department management, you may call the director at [phone]. YOUR FOLLOW UP INSTRUCTIONS ARE FOLLOWS: 1. Do you have a private Doctor? If you do not have a private doctor, please ask for a resource list of physicians or clinics that may be able to assist you with follow up care. 2. The Emergency Physician has interpreted your x-rays. The X-Ray specialist will also review them. If there is a change in the findings, you will be notified in 48 hours when at all possible. 3. A lab test or culture has been done, your results will be reviewed and you will be notified if you need a change in treatment. ADDITIONAL INSTRUCTIONS AND INFORMATION: 1. Your care today has been supervised by a physician who is specially trained in emergency care. Many problems require more than one evaluation for a complete diagnosis and treatment. We recommend that you schedule your follow up appointment as recommended to ensure complete treatment of you illness or injury. If you are unable to obtain follow up care and continue to have a problem, or if your condition worsens, we recommend that you return to the ED. 2. We are not able to safely determine your condition over the phone nor are we able to give sound medical advice over the phone. For these safety reasons, if you call for medical advice we will ask you to come to the ED for further evaluation. 3. If you have any questions regarding these discharge instructions please call the ED at [phone]. SAFETY INFORMATION: In the interest of safety, wellness, and injury prevention; we encourage you to wear your sealbelt, if you smoke; quite smoking, and we encourage family to use a protective helmet for bicycling and other sporting events that present an increased risk for head injury. IF YOUR SYMPTOMS WORSEN OR NEW SYMPTOMS DEVELOP, OR YOU HAVE CONCERNS ABOUT YOUR CONDITION; OR IF YOUR CONDITION WORSENS WHILE YOU ARE WAITING FOR YOUR FOLLOW UP APPOINTMENT; EITHER CONTACT YOUR PRIMARY CARE DOCTOR, THE PHYSICIAN WHOSE NAME AND NUMBER YOU WERE GIVEN, OR RETURN TO THE ED IMMEDIATELY. TRENT CID APRN Feb 21, 2021 20:40 ARELIS SORTO MD Feb 22, 2021 02:00
--- NOTE | 2021-02-21 20:47 | RAD ---
Three-view right hand and two-view right forearm dated 02/21/2021. No comparison available. Clinical indication: Pain injury. FINDINGS: 3 views the right hand show normal bony alignment. No displaced fracture or periostitis or bone destr uction. No acute osseous or articular abnormality. 2 views the right forearm show normal bony alignment. No displaced fracture. No radial or ulnar shaft fracture. IMPRESSION: No acute radiographic abnormality. Electronically signed by: Samuel Khoury MD (02/21/2021 8:44 PM) STACY
== END 2021-02-21 21:00 | disposition home or self-care (01) ==
LOC: ER 20:04
DX: S60.221A Contusion of right hand, initial encounter (principal); Z88.2 Allergy status to sulfonamides; Z88.1 Allergy status to other antibiotic agents; Z91.040 Latex allergy status; Z88.5 Allergy status to narcotic agent; Z88.8 Allergy status to other drugs, medicaments and biological substances; W22.01XA Walked into wall, initial encounter; Y93.89 Activity, other specified; Y92.89 Other specified places as the place of occurrence of the external cause; Y99.8 Other external cause status
CPT/HCPCS: 73090; 73130; 99284

== ENCOUNTER → 2021-03-14 | Outpatient (CLI) | payer OTHER ==
[2021-02-21 20:15] VITALS: BP 106/66
--- NOTE | 2021-03-14 15:23 | RAD ---
EXAM: Right hand, 2 views; right wrist, 2 views. HISTORY: Blunt trauma. COMPARISON: None. FINDINGS: 2 views of the right hand and wrist are obtained. There is no fracture, dislocation or subl uxation. There is no radiodense foreign body. IMPRESSION: No acute osseous finding. Electronically signed by: Jessica Clay MD (03/14/2021 3:20 PM) [id number]
== END ==
LOC: RAD 15:08
PROVIDERS: ATTEND Nurse Practitioner Family
DX: S69.91XA Unspecified injury of right wrist, hand and finger(s), initial encounter (principal); X58.XXXA Exposure to other specified factors, initial encounter; Y93.89 Activity, other specified; Y92.89 Other specified places as the place of occurrence of the external cause; Y99.8 Other external cause status
CPT/HCPCS: 73100; 73120

== ENCOUNTER 2021-05-10 16:48 | Emergency (ER) | payer OTHER ==
[~2021-05-10] VITALS: Ht 175.3 cm; Wt 99.8 kg
[2021-05-10 16:57] VITALS: BP 115/69
--- NOTE | 2021-05-10 17:39 | PHYS DOC ---
Past History Past Medical History: Other Additional Past Medical Histor: LUPUS (TRENT CID APRN) Past Surgical History: Appendectomy, Cholecystectomy, , Tubal ligation, Other Additional Past Surgical Histo: BILATERL KNEES, RIGHT SHOULDER, 2 ANKLES (TRENT CID APRN) Smoking: Non-smoker Alcohol Use: None Drug Use: None (TRENT CID APRN) General Adult EDM: Chief Complaint: Neck Pain HPI: HPI: Patient is a 40-year-old female being seen in the ER for left-sided numbness/tingling. She reports that 1 week ago she fell over her deck railing. She saw a chiropractor for her neck pain and "tach neck". She was told that there were some abnormalities in her C5, 6, and 7. Patient states that there were calcium deposits noted and the chiropractor thought she had nerve impingement. Patient states that her numbness to her left side is been prog ressing since then. Patient is also reporting nausea and floaters in both eyes. Patient denies headache, vision changes or loss, vomiting. Patient has a history of lupus. (TRENT CID APRN) Review of Systems: Review of Systems: 14 body systems of the review of systems have been reviewed. See HPI for pertinent positive and negative responses, otherwise all other systems are negative, nonpertinent or noncontributory (TRENT CID APRN) Allergies: Allergies: Allergies Coded Allergies Type Severity Reaction Last Updated Verified Sulfa (Sulfonamide Antibiotics) Allergy Unknown 10/05/19 Yes amoxicillin Allergy Unknown 10/05/19 Yes clindamycin Allergy Unknown 10/05/19 Yes latex Allergy Unknown 02/21/21 Yes morphine Allergy Unknown 10/05/19 Yes povidone-iodine Allergy Unknown 10/05/19 Yes soap Allergy Unknown 10/05/19 Yes tramadol Allergy Unknown 12/21/20 Yes (TRENT CID APRN) Physical Exam: PE: Constitutional: Well developed, well nourished, no acute distress, non-toxic appearance. [] HENT: Normocephalic, atraumatic, bilateral external ears normal, oropharynx moist, no oral exudates, nose normal. [] Eyes: PERRLA, 5 mm pupils bilaterally, EOMI, conjunctiva normal, no discharge. [] Neck: Normal range of motion, left-sided neck tenderness, no bony spinal tenderness, supple, no stridor. [] Cardiovascular:Heart rate regular rhythm, no murmur [] Lungs & Thorax: Bilateral breath sounds clear to auscultation [] Abdomen: Bowel sounds normal, soft, no tenderness, no masses, no pulsatile masses. [] Skin: Warm, dry, no erythema, no rash. [] Back: No tenderness, motion Extremities: No tenderness, no cyanosis, no clubbing, ROM intact, no edema. 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 [] (TRENT CID APRN) Current Patient Data: Labs: Laboratory Tests Test 05/10/21 17:31 White Blood Count 9.9 x10^3/uL Red Blood Count 3.89 x10^6/uL Hemoglobin 10.2 g/dL Hematocrit 31.7 % Mean Corpuscular Volume 81 fL Mean Corpuscular Hemoglobin 26 pg Mean Corpuscular Hemoglobin Concent 32 g/dL Red Cell Distribution Width 15.3 % Platelet Count 272 x10^3/uL Neutrophils (%) (Auto) 62 % Lymphocytes (%) (Auto) 27 % Monocytes (%) (Auto) 9 % Eosinophils (%) (Auto) 2 % Basophils (%) (Auto) 1 % Neutrophils # (Auto) 6.1 x10^3uL Lymphocytes # (Auto) 2.7 x10^3/uL Monocytes # (Auto) 0.9 x10^3/uL Eosinophils # (Auto) 0.2 x10^3/uL Basophils # (Auto) 0.1 x10^3/uL Sodium Level 141 mmol/L Potassium Level 3.9 mmol/L Chloride Level 106 mmol/L Carbon Dioxide Level 26 mmol/L Anion Gap 9 Blood Urea Nitrogen 12 mg/dL Creatinine 0.8 mg/dL Estimated GFR (Cockcroft-Gault) 79.4 BUN/Creatinine Ratio 15 Glucose Level 84 mg/dL Calcium Level 8.7 mg/dL Total Bilirubin 0.2 mg/dL Aspartate Amino Transf (AST/SGOT) 20 U/L Alanine Aminotransferase (ALT/SGPT) 22 U/L Alkaline Phosphatase 76 U/L Troponin I Quantitative < 0.017 ng/mL Total Protein 7.4 g/dL Albumin 4.1 g/dL Albumin/Globulin Ratio 1.2 Current Medications Medications (Trade) Dose Ordered Sig/Sam Route PRN Reason Start Time Stop Time Status Last Admin Dose Admin Ketorolac Tromethamine (Toradol Im) 60 mg 1X ONCE IM 05/10/21 18:00 05/10/21 18:01 DC 05/10/21 18:06 Orphenadrine Citrate (Norflex) 60 mg 1X ONCE IM 05/10/21 18:00 05/10/21 18:01 DC 05/10/21 18:07 Vital Signs: Vital Signs Date Time Temp Pulse Resp B/P (MAP) Pulse Ox O2 Delivery O2 Flow Rate FiO2 05/10/21 16:57 97.9 88 16 115/69 (84) 100 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 Kyle at 1537. [] (TRENT CID OD GRINDER OPERATOR) Radiology/Procedures: Radiology/Procedures: PROCEDURE: CT HEAD AND CERVICAL SPINE WO EXAM: CT head and cervical spine without contrast INDICATION: Fall, numbness, blurry vision COMPARISON: None available TECHNIQUE: Axial CT imaging through the head and cervical spine without intravenous contrast. Sagittal and coronal reformats were obtained. One or more of the following individualized dose reduction techniques were utilized for this examination: 1. Automated exposure control 2. Adjustment of the mA and/or kV according to patient size 3. Use of iterative reconstruction technique. FINDINGS: CT head: The ventricles and sulci are normal. Lock-white matter differentiation is maintained. There is no intracranial hemorrhage, acute infarct, or mass lesion. Basal cisterns are clear. The skull and scalp are intact. Paranasal sinuses and mastoid air cells are clear. Globes and orbits are intact.. CT cervical spine: No acute fracture. Alignment is normal. The craniocervical junction and atlantoaxial interval are maintained mild disc space narrowing at C7-T1 with small anterior osteophytes. No significant canal or foraminal narrowing. Prevert ebral soft tissue is normal. IMPRESSION: 1. No acute intracranial abnormality. 2. No acute osseous abnormality of the cervical spine. Electronically signed by: Summer Duke MD (05/10/2021 5:38 PM) [id number] DICTATED AND SIGNED BY: SUMMER DUKE MD DATE: 05/10/211730 CC: SARIAH VERONICA MD; EMERGENCY,DEPARTMENT; TRENT CID APRN ~MTH0 0[] (TRENT CID APRN) Heart Score: C/O Chest Pain: No Risk Factors: Risk Factors: DM, Current or recent (<one month) smoker, HTN, HLP, family history of CAD, obesity. Risk Scores: Score 0 - 3: 2.5% MACE over next 6 weeks - Discharge Home Score 4 - 6: 20.3% MACE over next 6 weeks - Admit for Clinical Observation Score 7 - 10: 72.7% MACE over next 6 weeks - Early Invasive Strategies (TRENT CID APRN) Course & Med Decision Making: Course & Med Decision Making Pertinent Labs and Imaging studies reviewed. (See chart for details) Patient is a 40-year-old female being seen in the ER for left sided numbness or tingling that started after falling over her deck railing. Floaters have no high risk aspects. She can follow-up with ophthalmology outpatient within 1 to 2 weeks. Patient given follow-up information. Work-up in the ER consisted of blood work and CT imaging of her head and neck. CT imaging shows no acute findings. Lab work is unremarkable. Patient treated with anti-inflammatory injection as well as a muscle relaxer. She states that she cannot take any codeine. She will be discharged home with Flexeril prescription. Patient advised to follow-up with her primary care provider. I discussed with patient all findings and diagnostic testing as well as the need to follow-up with PCP for further evaluation and treatment or return to the ER if any new or worsening symptoms. Strict return precautions were also discussed at length. Patient voiced understanding and agreement with the plan. Patient is hemodynamically stable at the time of disposition. (TRENT CID APRN) Course & Med Decision Making Did not see or evaluate patient. Did not discuss patient with GREY ROLL WORKER. Agree with GREY ROLL WORKER's work-up and disposition per note. (ARELIS SORTO MD) Dragon Disclaimer: Dragon Disclaimer: This electronic medical record was generated, in whole or in part, using a voice recognition dictation system. (TRENT CID APRN) Departure Departure: Impression: Primary Impression: Pinched nerve in neck Disposition: HOME / SELF CARE / HOMELESS Condition: GOOD Referrals: SARIAH VERONICA MD (PCP) Patient Instructions: Pinched Nerve Additional Instructions: You are seen in the ER for left-sided neck pain and numbness/tingling to your left arm. CT scan was performed of your head and neck that was negative for any acute findings. Your blood work was unremarkable. You were treated with anti- inflammatory shot and a muscle relaxer. You are being discharged home with gabapentin for nerve pain and Flexeril which is a muscle relaxer. Please take the medication as directed. They may cause drowsiness so do not take when you need to be alert and do not take with alcohol. You will need to follow-up with your primary care provider tomorrow regarding your ER visit. If you develop worsening of your pain, inability to bear weight or ambulate, weakness on one side, slurred speech, confusion, vision changes, loss of bowel or bladder, numbness in your groin please return to the ER immediately. You should follow- up with an esthetician within the week. You can call [phone] regarding the floaters that you have. EMERGENCY DEPARTMENT GENERAL DISCHARGE INSTRUCTIONS Thank you for coming to [facility] (ED) today and trusting us with you care. We trust that you had a positivie experience in our Emergency Department. If you wish to speak to the department management, you may call the director at [phone]. YOUR FOLLOW UP INSTRUCTIONS ARE FOLLOWS: 1. Do you have a private Doctor? If you do not have a private doctor, please ask for a resource list of physicians or clinics that may be able to assist you with follow up care. 2. The Emergency Physician has interpreted your x-rays. The X-Ray specialist will also review them. If there is a change in the findings, you will be notified in 48 hours when at all possible. 3. A lab test or culture has been done, your results will be reviewed and you will be notified if you need a change in treatment. ADDITIONAL INSTRUCTIONS AND INFORMATION: 1. Your care today has been supervised by a physician who is specially trained in emergency care. Many problems require more than one evaluation for a complete diagnosis and treatment. We recommend that you schedule your follow up appointment as recommended to ensure complete treatment of you illness or injury. If you are unable to obtain follow up care and continue to have a problem, or if your condition worsens, we recommend that you return to the ED. 2. We are not able to safely determine your condition over the phone nor are we able to give sound medical advice over the phone. For these safety reasons, if you call for medical advice we will ask you to come to the ED for further evaluation. 3. If you have any questions regarding these discharge instructions please call the ED at [phone]. SAFETY INFORMATION: In the interest of safety, wellness, and injury prevention; we encourage you to wear your sealbelt, if you smoke; quite smoking, and we encourage family to use a protective helmet for bicycling and other sporting events that present an increased risk for head injury. IF YOUR SYMPTOMS WORSEN OR NEW SYMPTOMS DEVELOP, OR YOU HAVE CONCERNS ABOUT YOUR CONDITION; OR IF YOUR CONDITION WORSENS WHILE YOU ARE WAITING FOR YOUR FOLLOW UP APPOINTMENT; EITHER CONTACT YOUR PRIMARY CARE DOCTOR, THE PHYSICIAN WHOSE NAME AND NUMBER YOU WERE GIVEN, OR RETURN TO THE ED IMMEDIATELY. Scripts Gabapentin (GABAPENTIN ) 100 Mg Capsule 100 MG PO TID for NEUROGENIC PAIN for 5 Days, #15 CAP 0 Refills Prov: TRENT CID APRN 05/10/21 Cyclobenzaprine Hcl (CYCLOBENZAPRINE HCL) 5 Mg Tablet 1 TAB PO TID for muscle spasm for 5 Days, #15 TAB 0 Refills Prov: TRENT CID APRN 05/10/21 TRENT CID APRN May 10, 2021 17:39 ARELIS SORTO MD May 10, 2021 20:24
--- NOTE | 2021-05-10 17:41 | RAD ---
EXAM: CT head and cervical spine without contrast INDICATION: Fall, numbness, blurry vision COMPARISON: None available TECHNIQUE: Axial CT imaging through the head and cervical spine without intravenous contrast. Sagitta l and coronal reformats were obtained. One or more of the following individualized dose reduction techniques were utilized for this examinat ion: 1. Automated exposure control 2. Adjustment of the mA and/or kV according to patient size 3. Use of iterative reconstruction technique. FINDINGS: CT head: The ventricles and sulci are normal. Lock-white matter differentiation is maintained. There is no in tracranial hemorrhage, acute infarct, or mass lesion. Basal cisterns are clear. The skull and scalp are intact. Paranasal sinuses and mastoid air cells are clear. Globes and orbits are intact.. CT cervical spine: No acute fracture. Alignment is normal. The craniocervical junction and atlantoaxial interval are lexie ntained mild disc space narrowing at C7-T1 with small anterior osteophytes. No significant canal or f oraminal narrowing. Prevertebral soft tissue is normal. IMPRESSION: 1. No acute intracranial abnormality. 2. No acute osseous abnormality of the cervical spine. Electronically signed by: Summer uDke MD (05/10/2021 5:38 PM) [id number]
--- NOTE | 2021-05-10 17:55 | EKG ---
[address] [address] Test Date: 2021-05-10 Test Time: 17:32:15 Pat Name: LARRY SOW Department: Room: Gender: F Product Manager: PEGGY : 1980 Requested By: TRENT CID Order Number: [id number] Reading MD: Measurements Intervals [place] Rate: 85 P: 51 MN: 146 QRS: 30 QRSD: 80 T: 41 QT: 364 QTc: 433 Interpretive Statements SINUS RHYTHM NORMAL ECG RI6.02 No previous ECG available for comparison
[2021-05-10] MEDS: KETOROLAC 60 MG/2 ML VIAL. IM ONE (18:06)
[2021-05-10] MEDS: ORPHENADRINE CITRATE 60 MG/2 ML VIAL. IM ONE (18:07)
[2021-05-10 18:10] LABS: BASO # 0.1 x10^3/uL (0.0-0.2); BASO % 1 % (0-3); EOS # 0.2 x10^3/uL (0.0-0.7); EOS % 2 % (0-3); HEMATOCRIT 31.7 % (36.0-47.0); HEMOGLOBIN 10.2 g/dL (12.0-15.5); LYMPH # 2.7 x10^3/uL (1.0-4.8); LYMPH % 27 % (24-48); MEAN CORPUSCULAR HEMOGLOBIN 26 pg (25-35); MEAN CORPUSCULAR HGB CONC 32 g/dL (31-37); MEAN CORPUSCULAR VOLUME 81 fL (79-100); MONO # 0.9 x10^3/uL (0.0-1.1); MONO % 9 % (0-9); NEUT # 6.1 x10^3uL (1.8-7.7); NEUT % 62 % (31-73); PLATELET COUNT 272 x10^3/uL (140-400); RED BLOOD COUNT 3.89 x10^6/uL (3.50-5.40); RED CELL DISTRIBUTION WIDTH 15.3 % (11.5-14.5); WHITE BLOOD COUNT 9.9 x10^3/uL (4.0-11.0)
[2021-05-10 18:43] LABS: CALCIUM 8.7 mg/dL (8.5-10.1); CREATININE 0.8 mg/dL (0.6-1.0); GFR 79.4; POTASSIUM 3.9 mmol/L (3.5-5.1)
[2021-05-10 18:53] LABS: ALBUMIN 4.1 g/dL (3.4-5.0); ALBUMIN/GLOBULIN RATIO 1.2 (1.0-1.7); TOTAL BILIRUBIN 0.2 mg/dL (0.2-1.0); TOTAL PROTEIN 7.4 g/dL (6.4-8.2)
[2021-05-10] MEDS ORDERED: GABA-585 PO (19:16)
[2021-05-10] MEDS ORDERED: CYCL5TAB PO (19:16)
== END 2021-05-10 19:37 | disposition home or self-care (01) ==
LOC: ER 16:48
DX: G58.9 Mononeuropathy, unspecified (principal); R20.0 Anesthesia of skin; Z88.1 Allergy status to other antibiotic agents; Z88.2 Allergy status to sulfonamides; Z91.040 Latex allergy status; Z90.49 Acquired absence of other specified parts of digestive tract; Z98.51 Tubal ligation status
CPT/HCPCS: 36415; 70450; 72125; 80053; 84484; 85025; 93005; 96372; 99285; J1885; J2360